=== PATIENT | male | born 1995 ===

== ENCOUNTER 2020-10-26 15:33 | Emergency (ER) | payer OTHER ==
[~2020-10-26] VITALS: Ht 177.8 cm; Wt 102.1 kg
[2020-10-26 15:37] VITALS: BP 149/89
--- NOTE | 2020-10-26 16:50 | NUR ---
dishroom attendant note: Pt to room from lobby.
== END 2020-10-26 18:13 | disposition home or self-care (01) ==
LOC: ED 18:05
DX: J06.9 Acute upper respiratory infection, unspecified (principal); J31.0 Chronic rhinitis; Z20.822 Contact with and (suspected) exposure to COVID-19
CPT/HCPCS: 99283; U0003; U0005